=== PATIENT | female | born 1965 | race Caucasian/White ===

== ENCOUNTER 2018-11-16 11:23 | Emergency (ER) | payer OTHER, SELFPAY ==
[2018-11-16 11:24] VITALS: BP 156/101; PULSE 66; RESP 16; TEMP 36.7; O2SAT 96; BMI 30.2
--- NOTE | 2018-11-16 11:36 | VDLE_ITS ---
Reason For Study: pAIN Procedure LEFT Exam performed portable in ED. GSV is normal. A preliminary report was called and/or faxed CFV is compressible, spontaneous, phasic, to Robby. competent, and demonstrates normal augmentation. FV is compressible, spontaneous, phasic, competent and demonstrates normal augmentation. POP V is compressible, spontaneous, phasic, competent and demonstrates normal augmentation. T/P Trunk is compressible. PTV is compressible. LT PerV is compressible. Interpretation Summary 1. Left leg with no DVT, no SVt, and no reflux noted. Ordering Physician: Rogelio Bustamante Referring Physician: Augustus Savage Chi Performed By: Lexi Raman RVT
--- NOTE | 2018-11-16 11:40 | ED.DCSUM_ITS ---
History of Present Illness Chief Complaint: Lower Extremity Injury Informant: Patient Occurred: Days - 1-2 Context: Gradual Onset Timing: Continuous Quality of Pain: Aching - and sore Location: left lower leg Current Severity: Moderate Maximum Severity: Moderate Worsened by: walking, palpation Relieved by: remaining still Associated Symptoms: Negative for: Parasthesia, Weakness, Loss of Funtion Narrative: Patient has had spontaneous onset of 2 red, painful, swollen areas on her left lower extremity. She states she felt malaise this morning prior to going to the doctor for this, but denies any fevers or other systemic symptoms, no chest pain or shortness of breath or feeling lightheaded. She has had no recent travel or immobilization, no history of DVT or PE. She does not have chronic lymphedema of her legs. She denies any foreign bodies on her feet, lacerations, splits in skin, splinters, etc. or any other obvious nidus for infection. No recent injury/trauma. She went to see if there is a walk-in appointment available at her doctor but there was not, and the nurse recommended that she come to the emergency department. Recent Illness/Hospitalization: No - Past Medical History (1) Borderline diabetes mellitus Status: Chronic Past Medical History - Allergies and Home Meds Allergies/Adverse Reactions: Allergies Penicillins Allergy (Verified 11/16/18 11:24) Rash Primary Care Physician: Sukumar Vanegas,Out of [Primary Care Provider] - Smoking Status: Never smoker Review of Systems General: Reports: Malaise. Denies: Chills, Fever Eyes: Denies: Visual changes - bilaterally, Diplopia ENT: Denies: Rhinorrhea, Sore throat Cardiovascular: Denies: Chest pain, Palpitations Respiratory: Denies: Dyspnea, Cough, Dyspnea on exertion Gastrointestinal: Denies: Abdominal pain, Nausea, Vomiting, Diarrhea, Melena, Hematochezia Genitourinary: Denies: Dysuria, Hematuria, Frequency Musculoskeletal: Reports: Swelling, Extremity Pain. Denies: Back pain Skin: Reports: Rash. Denies: Wounds Neurological: Denies: Headache, Weakness, Numbness Physical Exam Vital Signs/Narrative: Vital Signs Temp Pulse Resp BP Pulse Ox 11/16/18 11:24 98.0 F 66 16 156/101 H 96 Inital Vital Signs reviewed: Yes - Extremity Exam Right Tib fib: - - Patient has 2 separate areas of blanching, tender erythema, edges are not well-circumscribed, one is at the medial ankle and there is excellent range of motion of the ankle, there is tender to deep palpation posterior to the malleolus; the other is along the distal third of the sandoval, proximal to the ankle joint, it is swollen but not fluctuant, there is no palpable abscess. There is no lymphangitis, calf tenderness, palpable cords in the leg or thigh, and no inguinal lymphadenopathy. There is no obvious wound or nidus for infection. There are no splits between her toes and the plantar aspect of the foot is benign and normal-appearing.. Negative for: Limited ROM General: Well nourished, Well developed, - - Well-appearing, NAD, pleasant, conversive Head: Normocephalic, Atraumatic Eyes: Perrl, EOMI ENT: No Trauma, Moist Mucous Membranes Neck: Nontender, Full ROM Skin: No Trauma, Rash - Blanching erythema without any other focal vesicular, petechial, or bullous lesions. See above. Neurological: Alert, Oriented x3, Cranial nerves II-XII grossly intact, Normal Strength, Normal Sensation, Normal Gait Psychological: Normal affect, Normal Mood Diagnostic/Tx/Re-eval - Medical Decision Making Ultrasound of the left lower extremity was obtained in the emergency department, the preliminary from the tech who performed the test is that it is normal with no evidence of abscess, deep venous, or superficial venous thrombosis. Given this, and the appearance and tenderness of these areas, will treat as cellulitis until proven otherwise. There is no other likely diagnosis at this time. Patient reported there does not appear to be any joint involvement, she has full range of motion without difficulty. On reexamination of her leg 45 minutes after her initial evaluation, the redness is unchanged on my exam. I jana a line around it with a permanent marker for the patient to follow, given reasons to return. Initially treated with IM Ancef 1 g, her reaction to penicillin is not anaphylaxis, we will closely watch her prior to discharge. ED Disposition - Plan for ED Patient: Disposition: Home or Assisted Living Diagnosis: Cellulitis of left lower leg Instructions: Cellulitis Prescriptions: Cephalexin [Keflex] 500 mg PO 4X/DAY #40 cap Transmission Status: Pending to [facility] Referrals: [facility] Doctor,Out of [Primary Care Provider] - 3-5 Days if not improving
[2018-11-16 14:41] VITALS: BP 157/93; PULSE 71; RESP 15; O2SAT 98
== END 2018-11-16 15:17 | disposition home or self-care (01) ==
LOC: ED 12:25
PROVIDERS: Emergency Provider Emergency Medicine; Family Provider Nurse Practitioner Family; PCP Nurse Practitioner Family
DX: L03.116 Cellulitis of left lower limb (principal)
CPT/HCPCS: 93971; 96365; 99283

== ENCOUNTER → 2019-09-20 10:55 | Outpatient (REF) | payer OTHER, SELFPAY | LOC: MTDU 10:55 | PROVIDERS: PCP Nurse Practitioner Family; Referring Provider Family Medicine; Visit Provider Family Medicine | DX: U07.1 COVID-19 (principal) | CPT/HCPCS: 87635; G2023; U0004 ==

== ENCOUNTER 2019-09-22 15:12 | Emergency (ER) | payer OTHER, SELFPAY ==
[2019-09-22 15:14] VITALS: BP 167/89; PULSE 92; RESP 22; TEMP 36.4; O2SAT 97; BMI 29.2
--- NOTE | 2019-09-22 15:23 | EKG12_ITS ---
Test Reason : Blood Pressure : / mmHG Vent. Rate : 080 BPM Atrial Rate : 080 BPM P-R Int : 174 ms QRS Dur : 102 ms QT Int : 392 ms P-R-T Axes : 056 -37 079 degrees QTc Int : 452 ms Normal sinus rhythm Left axis deviation Left ventricular hypertrophy with repolarization abnormality Abnormal ECG Confirmed by ILA AGUDELO, SCOTT ([id number]), online editor PEACE CANO ([id number]) on 09/27/2019 2:06:30 PM Referred By: ADOLPH Confirmed By:SCOTT THORPE MD
--- NOTE | 2019-09-22 15:24 | ED.VIS.GEN ---
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 Patient states that little over a week ago she began to experience fever fatigue headache sore throat cough and shortness of breath. There is been a outbreak of COVID-19 in her [facility] community. She was swabbed for COVID on Thursday. Last Thursday she was started on a antibiotic and prednisone which she states she has finished. She most of her symptoms have resolved but she feels extremely fatigued. Her is a transportation analyst and notes that her oxygen saturations have been good but her fatigue has been limiting her eating. She denies any urinary symptoms. She continues to have some shortness of breath. Past Medical History - Allergies and Home Meds Allergies/Adverse Reactions: Allergies Penicillins Allergy (Verified 09/22/19 15:22) Rash Primary Care Physician: Diego Ayala, [employer] [place] [employer] [Primary Care Provider] - As Needed Smoking Status: Never smoker Review of Systems General: Reports: Fever, Malaise. Denies: Chills, Sweats Eyes: Denies: Visual changes - bilaterally, Diplopia ENT: Reports: Sore throat, - - Sinus pressure and pain. Denies: Rhinorrhea Cardiovascular: Reports: Chest pain. Denies: Palpitations Respiratory: Reports: Dyspnea, Cough, Dyspnea on exertion Gastrointestinal: Denies: Abdominal pain, Nausea, Vomiting, Diarrhea, Melena, Hematochezia Genitourinary: Denies: Dysuria, Hematuria, Frequency Musculoskeletal: Reports: Myalgias. Denies: Back pain, Extremity Pain Skin: Denies: Rash, Wounds Neurological: Reports: Headache. Denies: Weakness, Numbness Physical Exam Vital Signs/Narrative: Vital Signs Temp Pulse Resp Pulse Ox 09/22/19 15:14 97.5 F L 92 22 H 97 Inital Vital Signs reviewed: Yes General: Well nourished, Well developed, No Acute Distress Head: Normocephalic, Atraumatic Eyes: Perrl, EOMI ENT: Moist mucous membranes, No rhinorrhea Neck: Supple, Nontender Cardiovascular: Regular rate, Regular rhythm, No murmurs Respiratory: No distress, CTA bilaterally, Chest nontender Abdomen: Soft, Nontender, Nondistended, Normal bowel sounds Back: Nontender, Normal Inspection Extremities: Nontender, No edema Skin: Normal color, No rash Neurological: Alert, Oriented x3, Cranial nerves II-XII grossly intact, Normal Strength, Normal Sensation Psychological: Normal affect, Normal Mood Diagnostic/Tx/Re-eval - Medical Decision Making Basic labs showed a normal white blood cell count. Troponin negative. CMP normal for potassium of 3.1.. Her EKG is a normal sinus rhythm at a rate of 80. She has maintained a pulse ox in the mid 90s. Her chest x-ray shows some small infiltrative changes but she just finished antibiotics. At this point I believe the patient can be discharged home. I will write for some supplemental potassium. Return if worsening or concerns ED Disposition - Plan for ED Patient: Disposition: Home or Assisted Living Diagnosis: COVID-19 virus infection, Hypokalemia, Fatigue Prescriptions: Potassium Chloride [K-Dur] 20 meq PO DAILY #4 tab Prescription Printed Potassium Chloride [K-Dur] 40 meq PO DAILY #8 tab Transmission Status: Pending to [facility] Referrals: Diego Ayala, [employer] [place] [employer] [Primary Care Provider] - As Needed Additional Instructions: Continue to hydrate and rest. All signs are indicating that you are getting better from this virus.
[2019-09-22] MEDS: 0.9% Normal Saline 1,000 ML 1000 ML IV ×2 (15:54→16:51)
[2019-09-22 15:58] LABS: Absolute Lymphocyte Count 1.98 X10^3/uL (0.83-4.51); Absolute Neutrophil Count 3.7 X10^3/uL (2.0-7.7); Basophil# 0.03 X10^3/uL; Basophil% 0.5 % (0-1); Eosinophils% 1.5 % (0-5); Hematocrit 46.7 % (37-47); Hemoglobin 15.6 g/dL (12.0-15.0); Lymphocyte # 1.98 X10^3/ul (4.0); Lymphocyte % 29.8 % (19-41); Mean Corp Hgb Conc 33.4 g/dL (32-36); Mean Corpuscular Hgb 29.4 pg (27.0-32.0); Mean Corpuscular Volume 87.9 fL (81-99); Monocyte# 0.81 X10^3/uL; Monocyte% 12.2 % (0-10); NRBC Flagged by Analyzer 0 % (0-5); Neutrophil # 3.68 X10^3/uL (2.7-7.7); Neutrophil % 55.4 % (47-70); POSITIVE MORPHOLOGY YES; Platelet Count 336 K/mm3 (150-450); RBC Distribution Width CV 12.3 % (11.6-14.6); RBC Distribution Width SD 39.7 fl (35.1-43.9); Red Blood Count 5.31 M/mm3 (4.2-5.4); White Blood Count 6.6 K/mm3 (4.4-11.0)
[2019-09-22 16:00] LABS: Differential Indicated SCAN CRITERIA MET
--- NOTE | 2019-09-22 16:00 | RAD_ITS ---
STUDY: X-RAY CHEST REASON FOR EXAM: Female, 54 years old. HAD CHILLS ABOUT 12 DAYS AGO, HEADACHE, SORE THROAT, NAUSEA AND DIARRHEA, COUGH, SOB, WEAK TECHNIQUE: Portable chest COMPARISON: None. FINDINGS: There are mild bilateral lower lobe pulmonary opacities. There is mild left upper lobe pulmonary opacity. There is no demonstrated pleural abnormality. Heart is upper limits of normal in size.. Normal mediastinum and alvaro. Normal visualized pulmonary arteries. Normal visualized aortic arch and descending thoracic aorta. Normal visualized thoracic spine. Normal visualized ribs, clavicles, and shoulders. There is no demonstrated abnormality of the visualized soft tissue structures of the upper abdomen. RAD/Chest 1 View (Portable) IMPRESSION: Mild bilateral lower lobe pulmonary opacities mild left upper lobe opacity possible pneumonia, atypical viral pneumonia Electronically Signed: Jesse Benz, at 16:25 EDT Tel , Service support ,
[2019-09-22 16:18] LABS: ALB/GLOB Ratio 0.8 RATIO (0.9-2.4); AST(SGOT) 23 U/L (15-37); Alanine Aminotransfer ALT/SGPT 39 U/L (13-56); Albumin, Serum 3.5 g/dL (3.2-5.0); Alkaline Phosphatase 117 U/L (45-117); Anion Gap 6 (5-15); BUN 12 mg/dL (7-18); BUN/Creat Ratio 17.7 RATIO (10-20); Calcium,Total 8.8 mg/dL (8.5-10.1); Chloride 107 mmol/L (98-107); Creatinine, Serum 0.68 mg/dL (0.55-1.02); EST Glomerular Filtration Rate 95 mL/min (>60); Est Glom Filt Rate - Afr Amer 115 mL/min (>60); Estimated Creatinine Clearance 73.06 ml/min; Globulin 4.2 g/dL (2.2-4.2); Glucose 105 mg/dL (74-106); Lipase 181 U/L (73-393); Potassium 3.1 mmol/L (3.5-5.1); Protein, Total 7.7 g/dL (6.4-8.2); Sodium Level 141 mmol/L (136-145)
[2019-09-22 16:21] LABS: Prothrombin Time (Protime)PT. 13.1 SECONDS (11.7-14.9)
[2019-09-22 16:22] LABS: Partial Thromboplast Time 29.9 Seconds (24.1-36.2)
[2019-09-22 16:36] LABS: Anisocytosis RARE; Atypical Lymphocyte 1+ %; Platelet Estimate ADEQUATE (ADEQ); Red Cell Morphology N CHROM NORMAL (NORM C&C)
[2019-09-22 17:21] VITALS: BP 184/98; PULSE 81; RESP 18; TEMP 36.4; O2SAT 96
[2019-09-22 17:55] LABS: Bacteria 0 SEEN /hpf (None Seen); Mucous, Urine 0 SEEN /hpf (<or=2+); Red Blood Cells-Urine 0 SEEN /hpf (0-5); White Blood Cells 0 SEEN /hpf (0-5)
[2019-09-22 17:56] LABS: Color, Urine Yellow (Yellow); Glucose, Dipstick Normal (Normal); Ketone-Dipstick Negative (Negative); Leukocyte Esterase-Dipstick Negative /ul (Negative); Nitrite-Dipstick Negative (Negative); Occult Blood-Urine Negative /ul (Negative); Protein-Dipstick Negative (Negative); Specific Gravity, Urine 1.005 (1.002-1.030); Urine Bilirubin Dipstick Negative (Negative); Urine Clarity Clear (Clear); Urine Urobilinogen Normal (Normal)
[2019-09-22 18:17] LABS: Squamous Epithelial Cells - UA 0-5 SEEN /hpf (5-10)
[2019-09-22 18:53] VITALS: BP 145/78; PULSE 84; RESP 19; O2SAT 97
[2019-09-23 12:18] LABS: Pathologist Review Reviewed
== END 2019-09-22 18:54 | disposition home or self-care (01) ==
PROVIDERS: Emergency Provider Emergency Medicine; PCP Nurse Practitioner Family
DX: U07.1 COVID-19 (principal); E87.6 Hypokalemia
CPT/HCPCS: 71045; 80053; 81001; 83690; 84484; 85025; 85610; 85730; 93005; 96360; 99285; J7030; A4216

== ENCOUNTER 2024-06-20 13:28 | Inpatient (IN) | payer OTHER, SELFPAY ==
[2024-06-20] VITALS (10 sets, daily range): BP systolic 106–135; BP diastolic 61–93; PULSE 69–85; RESP 16–27; TEMP 36.6–37.1; O2SAT 91–100; BMI 34.0
[2024-06-20 14:03] LABS: Absolute Lymphocyte Count 0.77 X10^3/uL (0.83-4.51); Absolute Neutrophil Count 6.6 X10^3/uL (2.0-7.7); Basophil# 0.03 X10^3/uL; Basophil% 0.4 % (0-1); Hematocrit 45.3 % (37-47); Hemoglobin 15.3 g/dL (12.0-15.0); Lymphocyte # 0.77 X10^3/ul (0.83-4.51); Lymphocyte % 9.4 % (19-41); Mean Corp Hgb Conc 33.8 g/dL (32-36); Mean Corpuscular Hgb 29.9 pg (27.0-32.0); Mean Corpuscular Volume 88.6 fL (81-99); Monocyte# 0.78 X10^3/uL; Monocyte% 9.5 % (0-10); NRBC Flagged by Analyzer 0 % (0-5); Neutrophil # 6.56 X10^3/uL (2.7-7.7); Neutrophil % 80.3 % (47-70); Platelet Count 286 K/mm3 (150-450); RBC Distribution Width CV 13.3 % (11.6-14.6); RBC Distribution Width SD 43.6 fl (35.1-43.9); Red Blood Count 5.11 M/mm3 (4.2-5.4); White Blood Count 8.2 K/mm3 (4.4-11.0)
[2024-06-20] MEDS: Aspirin 81 MG TAB.CHEW 324 MG PO (14:06)
--- NOTE | 2024-06-20 14:25 | RAD_ITS ---
PROCEDURE: CHEST PA AND LATERAL REASON FOR EXAM: Shortness of breath TECHNIQUE: Frontal and lateral views of the chest. COMPARISON: 09/22/2019 FINDINGS: Left chest pacemaker Heart size is moderately enlarged. The mediastinal contour is unremarkable. Pulmonary vasculature is congested. Left basilar opacity. The bones are unremarkable. RAD/Chest PA and Lateral IMPRESSION: 1. Cardiomegaly with pulmonary vascular edema. 2. Left basilar opacity which may represent atelectasis, airspace disease, and /or pleural fluid. Reading Location: [facility]
[2024-06-20 14:29] LABS: Anion Gap 10 (5-15); BUN 8 mg/dL (7-18); Calcium,Total 9.1 mg/dL (8.5-10.1); Chloride 100 mmol/L (98-107); Creatinine, Serum 0.73 mg/dL (0.55-1.02); EST Glomerular Filtration Rate 87 mL/min (>60); Est Glom Filt Rate - Afr Amer 105 mL/min (>60); Estimated Creatinine Clearance 78.34 ml/min; Glucose 112 mg/dL (74-106); Potassium 3.5 mmol/L (3.5-5.1); Sodium Level 132 mmol/L (136-145); Troponin-I HS 16 pg/mL (3.0-54.0)
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
[2024-06-20 15:07] LABS: Carboxyhemoglobin Frac (CO) 1.4 % (0.0-1.5)
[2024-06-20 15:29] LABS: Carboxyhemoglobin Order 1.4
--- NOTE | 2024-06-20 16:18 | NURSING ---
upon going in to pts room pt was 89 on RA, walked pt on pulse ox pt dropped to 87 on RA with ambulation. pt back in bed and 2L placed.
--- NOTE | 2024-06-20 16:44 | HP.PCM.HOS_ITS ---
HPI - General General Date of Admission: 06/20/24 Date of Service: 06/20/24 HPI Narrative LISA MOSLEY, is a 59-year-old female with history of HOCM and AICD as well as anxiety and hypertension presented to [facility] ED 06/20/2024 with shortness of breath that started today and flulike symptoms since Thursday including nonproductive cough, nasal congestion with fatigue and chills and subjective fevers. She saw PCP today and was encouraged to come to the hospital for evaluation. Did have recent influenza A sick contact. In the ED patient was placed on nonrebreather as there was question of carbon monoxide exposure but VBG carboxyhemoglobin only 1.4 so she is taken off of the rebreather. She was found to be influenza A positive, patient is ambulated she dropped down to 87% on room air so hospitalist contacted for admission. Patient evaluated bedside. Patient reports headache, nonproductive cough, chills, fever yesterday, fatigue, sore throat and today shortness of breath. Feels a little bit nauseous but no diarrhea or abdominal pain. Feeling about the same as when she arrived to the ED which is to say generally feeling unwell [facility] Medical History HOCM (hypertrophic obstructive cardiomyopathy) Presence of combination internal cardiac defibrillator (ICD) and pacemaker Chondrodermatitis nodularis helicis of left ear Mitral valve prolapse A-fib Generalized anxiety disorder Home Medications ?Medication ?Instructions ?Recorded ?Last Taken ?Type venlafaxine 37.5 mg tablet 75 mg PO DAILY 06/09/15 Unk nown History ramipril 5 mg capsule 5 mg PO DAILY 06/11/22 Unkno wn History Allergy/AdvReac Type Severity Reaction Status Date / Time Penicillins Allergy Rash Verified 06/11/22 14:49 Family History Father Diabetes Hypertension Heart disease CVA (cerebral vascular accident) Social History Smoking Status: Never smoker alcohol intake: never substance use type: does not use caffeine: Yes Type: coffee and tea ROS ROS Narrative General: Has had fever and chills HENT: Headache and sore throat EYES: Denies changes in vision Resp: Nonproductive cough and shortness of breath Cardiac: Denies chest pain GI: Denies abdominal pain, denies changes in bowel, limited nausea : Denies changes in urination Extremity: Denies swelling MSK: Generalized weakness and aches Neuro: Denies any numbness/tingling Heme: Denies any bleeding or bruising Skin: Denies rashes Psychiatric: No complaints voiced Vital Signs Vital Signs Vital Signs: 06/20/24 13:29 06/20/24 13:36 06/20/24 13:53 Temperature 98.4 F Temperature Source Axillary Pulse Rate 79 Respiratory Rate 27 H Respiratory Effort Short of Breath Blood Pressure 135/93 H Blood Pressure Mean 107 Pulse Ox 100 Oxygen Delivery Method Non-Rebreather Non-Rebreather Non-Rebreather Oxygen Flow Rate (L/min) 15 15 06/20/24 14:29 06/20/24 15:00 06/20/24 16:00 Temperature 97.9 F Temperature Source Temporal Pulse Rate 71 85 71 Respiratory Rate 18 20 H 19 H Respiratory Effort Blood Pressure 133/61 H 129/81 H 132/88 H Blood Pressure Mean 85 97 102 Pulse Ox 99 100 98 Oxygen Delivery Method Non-Rebreather @ 15L/min Non-Rebreather Room Air Oxygen Flow Rate (L/min) 15 Weight Weight: 81.6 kg Body Mass Index (BMI) 34.0 Physical Exam Narrative General: Alert, oriented HEENT: Atraumatic, normocephalic Eyes: Anicteric, normal conjunctiva, extraocular movements grossly intact Neck: Supple Respiratory: No significant rhonchi or wheezes appreciated, does have increased respiratory effort Cardiovascular: Regular rate and rhythm GI: Soft, nontender, nondistended Extremities: No edema Musculoskeletal: Moving all extremities Neuro: No overt focal neurological deficits Skin: No rashes appreciated Psych: Cooperative Results Lab / Micro Data 06/20/24 13:53 06/20/24 13:53 Labs: Laboratory Results - last 24 hr 06/20/24 13:53: WBC 8.2, RBC 5.11, Hgb 15.3 H, Hct 45.3, MCV 88.6, MCH 29.9, MCHC 33.8, RDW Std Deviation 43.6, RDW Coeff of Ousmane 13.3, Plt Count 286, MPV 11.0, Immature Gran % (Auto) 0.400, Neut % (Auto) 80.3 H, Lymph % (Auto) 9.4 L, [place] % (Auto) 9.5, Eos % (Auto) 0.0, Baso % (Auto) 0.4, Absolute Neuts (auto) 6.6, Absolute Lymphs (auto) 0.77 L, Nucleated RBC % 0, Sodium 132 L, Potassium 3.5, Chloride 100, Carbon Dioxide 23.0, Anion Gap 10, BUN 8, Creatinine 0.73, Estim Creat Clear Calc 78.34, Est GFR (MDRD) Af Amer 105, Est GFR (MDRD) Non-Af 87, BUN/Creatinine Ratio 11.0, Glucose 112 H, Calcium 9.1, Troponin I High Sens 16 Micro: Microbiology 06/20/24 14:00 Mucosa - Nose SARS-CoV-2, Influenza & RSV (PCR) - Final Influenzae A ABG Data ABG results: ABG 06/20/24 15:01 VBG Carboxyhemoglobin 1.4 Imaging Radiology Impression Chest X-Ray 06/20/24 14:25 IMPRESSION: 1. Cardiomegaly with pulmonary vascular edema. 2. Left basilar opacity which may represent atelectasis, airspace disease, and/or pleural fluid. Reading Location: [facility] Assessment & Plan Assessment/Plan (1) Hypoxemia: (2) Influenza A: PLAN: Plan # Hypoxia secondary to influenza infection -Patient found to be influenza A positive -Chest x-ray queried cardiomegaly with pulmonary vascular edema and left basilar opacity but reviewing film does not appear the patient has discrete infiltrate and patient with nonproductive cough and has an alternative reason for her hypoxia and shortness of breath (influenza A) so she was not started on antibiotics -Will place patient on DuoNebs -Incentive spirometry -Patient was borderline outside window for Tamiflu however this was started in the ED, feel it is reasonable to continue that at this time # History of HOCM and AICD placement -Last year patient had myomectomy and a month later had AICD placement -Noted -Can continue to follow-up outpatient #Depression/anxiety -Awaiting home med rec update, will continue home medications when this is available #DVT ppx: Lovenox subcu Brooke Martin MD Charges/Coding Visit Charges Inpatient E&M: 06963 Init Hosp L1
[2024-06-20] MEDS: Oseltamivir Phosphate 75 MG Capsule PO ×2 (16:48→23:07)
[2024-06-20] MEDS: 0.9% Normal Saline (1000mL) 1,000 ML 50 ML IV (19:04)
[2024-06-20] MEDS: 0.9% Saline Lock 10 ML Syringe IV (19:05)
[2024-06-20] MEDS: Ipratropium/Albuterol Sulfate 3 ML AMPUL.NEB INHALATION (20:25)
[2024-06-20] MEDS: Metoprolol(XL)Succ 100 MG Tablet PO (22:37)
[2024-06-20] MEDS: Acetaminophen 325 MG Tablet 650 MG PO (22:47)
[2024-06-20] MEDS: guaiFENesin 10 ML UDC (200MG/10ML) 20 ML PO (22:47)
[2024-06-20] MEDS: MELATONIN 3 MG TABLET PO (23:11)
[2024-06-20] MEDS: BENZOCAINE/MENTHOL 1 LOZENGE MUCOUS MEM (23:11)
[2024-06-21] VITALS (13 sets, daily range): BP systolic 95–111; BP diastolic 55–74; PULSE 52–78; RESP 16–20; TEMP 36.3–36.7; O2SAT 87–98
[2024-06-21] MEDS: Acetaminophen 325 MG Tablet 650 MG PO ×3 (06:27→22:36)
[2024-06-21] MEDS: guaiFENesin 10 ML UDC (200MG/10ML) 20 ML PO ×3 (06:27→22:37)
[2024-06-21 06:40] LABS: Absolute Lymphocyte Count 1.75 X10^3/uL (0.83-4.51); Absolute Neutrophil Count 3.6 X10^3/uL (2.0-7.7); Basophil# 0.03 X10^3/uL; Basophil% 0.5 % (0-1); Eosinophil# 0.16 X10^3/uL; Eosinophils% 2.5 % (0-5); Hematocrit 44.8 % (37-47); Hemoglobin 14.6 g/dL (12.0-15.0); Lymphocyte # 1.75 X10^3/ul (0.83-4.51); Lymphocyte % 27.3 % (19-41); Mean Corp Hgb Conc 32.6 g/dL (32-36); Mean Corpuscular Hgb 29.6 pg (27.0-32.0); Mean Corpuscular Volume 90.7 fL (81-99); Mean Platelet Vol. 10.7 fl (6.2-12.0); Monocyte# 0.85 X10^3/uL; Monocyte% 13.3 % (0-10); NRBC Flagged by Analyzer 0 % (0-5); Neutrophil % 56.1 % (47-70); Platelet Count 245 K/mm3 (150-450); RBC Distribution Width CV 13.4 % (11.6-14.6); RBC Distribution Width SD 45.1 fl (35.1-43.9); Red Blood Count 4.94 M/mm3 (4.2-5.4); White Blood Count 6.4 K/mm3 (4.4-11.0)
[2024-06-21 08:38] LABS: Anion Gap 7 (5-15); BUN 11 mg/dL (7-18); BUN/Creat Ratio 15.4 RATIO (10-20); Chloride 104 mmol/L (98-107); Creatinine, Serum 0.72 mg/dL (0.55-1.02); EST Glomerular Filtration Rate 88 mL/min (>60); Est Glom Filt Rate - Afr Amer 107 mL/min (>60); Estimated Creatinine Clearance 79.43 ml/min; Glucose 94 mg/dL (74-106); Potassium 3.1 mmol/L (3.5-5.1); Sodium Level 137 mmol/L (136-145)
[2024-06-21] MEDS: Atorvastatin Calcium 10 MG Tablet PO (08:39)
[2024-06-21] MEDS: Enoxaparin 40 MG/0.4 ML Syringe SC (08:39)
[2024-06-21] MEDS: Venlafaxine XR 150 MG Capsule PO (08:39)
[2024-06-21] MEDS: Oseltamivir Phosphate 75 MG Capsule PO ×2 (08:40→22:58)
--- NOTE | 2024-06-21 08:49 | NURSING ---
This RN is aware of Vital Signs taken by Randi Student Nurse from the [facility].
--- NOTE | 2024-06-21 09:18 | PCM.PN.HOSP ---
Subjective Subjective Doing well, no issues overnight Objective Data Objective Data Vital Signs: Vital Signs Temp Pulse Resp BP Pulse Ox O2 Del Method O2 Flow Rate 98.1 F 74 16 98/55 L 97 Nasal Cannula 1 06/21/24 08:36 06/21/24 08:43 06/21/24 08:36 06/21/24 08:43 06/21/24 08:36 06/21/24 08:36 06/21/24 08:36 Oxygen Flow Rate (L/min) 1 Oxygen Delivery Method Nasal Cannula Weight: 179 lb 14.355 oz Body Mass Index (BMI) 34.0 Intake & Output: Intake and Output for Last 24 Hours 06/20/24 06/21/24 06/22/24 03:59 03:59 03:59 Intake Total 0 / 0 Balance 0 / 0 Lab / Micro Data 06/21/24 05:35 06/21/24 05:35 Labs: Laboratory Results - last 24 hr 06/20/24 13:53: WBC 8.2, RBC 5.11, Hgb 15.3 H, Hct 45.3, MCV 88.6, MCH 29.9, MCHC 33.8, RDW Std Deviation 43.6, RDW Coeff of Ousmane 13.3, Plt Count 286, MPV 11.0, Immature Gran % (Auto) 0.400, Neut % (Auto) 80.3 H, Lymph % (Auto) 9.4 L, [place] % (Auto) 9.5, Eos % (Auto) 0.0, Baso % (Auto) 0.4, Absolute Neuts (auto) 6.6, Absolute Lymphs (auto) 0.77 L, Nucleated RBC % 0, Sodium 132 L, Potassium 3.5, Chloride 100, Carbon Dioxide 23.0, Anion Gap 10, BUN 8, Creatinine 0.73, Estim Creat Clear Calc 78.34, Est GFR (MDRD) Af Amer 105, Est GFR (MDRD) Non-Af 87, BUN/Creatinine Ratio 11.0, Glucose 112 H, Calcium 9.1, Troponin I High Sens 16 06/21/24 05:35: WBC 6.4, RBC 4.94, Hgb 14.6, Hct 44.8, MCV 90.7, MCH 29.6, MCHC 32.6, RDW Std Deviation 45.1 H, RDW Coeff of Ousmane 13.4, Plt Count 245, MPV 10.7, Immature Gran % (Auto) 0.300, Neut % (Auto) 56.1, Lymph % (Auto) 27.3, [place] % (Auto) 13.3 H, Eos % (Auto) 2.5, Baso % (Auto) 0.5, Absolute Neuts (auto) 3.6, Absolute Lymphs (auto) 1.75, Nucleated RBC % 0, Sodium 137, Potassium 3.1 L, Chloride 104, Carbon Dioxide 25.0, Anion Gap 7, BUN 11, Creatinine 0.72, Estim Creat Clear Calc 79.43, Est GFR (MDRD) Af Amer 107, Est GFR (MDRD) Non-Af 88, BUN/Creatinine Ratio 15.4, Glucose 94, Calcium 9.0 Micro: Microbiology 06/20/24 14:00 Mucosa - Nose SARS-CoV-2, Influenza & RSV (PCR) - Final Influenzae A ABG Data ABG results: ABG 06/20/24 15:01 VBG Carboxyhemoglobin 1.4 Radiography Diagnostic Testing: Radiology Impression Chest X-Ray 06/20/24 14:25 IMPRESSION: 1. Cardiomegaly with pulmonary vascular edema. 2. Left basilar opacity which may represent atelectasis, airspace disease, and/or pleural fluid. Reading Location: [facility] Physical Exam Narrative General: Alert, Oriented x3, Cooperative, No apparent distress HEENT: Atraumatic, PERRLA, EOMI, Normocephalic Oral: Moist Mucosa Neck: Supple, No JVD Lungs: Diminished, Normal air movement, No rhonchi, No wheeze, No rales Cardiovascular: Regular rate, Regular Rhythm, Normal S1, Normal S2, No murmurs Abdomen: Soft, Non Tender, Non-Distended, No Hepato-splenomegaly Extremities: No edema, Capillary Refill Less than 3 Seconds Skin: No rashes, No breakdown Musculoskeletal: No Tenderness to Palpation of Joints or Extremities Neurological: No focal neurological deficits, Motor Exam 5/5 strength throughout, Sensory exam intact to light touch and pain Psych/Mental Status: Normal Affect, Appropriate Assessment & Plan Assessment/Plan (1) Hypoxemia: (2) Influenza A: PLAN: Plan 1. Hypoxia secondary to influenza infection -Patient found to be influenza A positive -Chest x-ray queried cardiomegaly with pulmonary vascular edema and left basilar opacity but reviewing film does not appear the patient has discrete infiltrate and patient with nonproductive cough and has an alternative reason for her hypoxia and shortness of breath (influenza A) so she was not started on antibiotics -Will place patient on DuoNebs -Incentive spirometry -Patient was borderline outside window for Tamiflu however this was started in the ED, feel it is reasonable to continue that at this time ? Continue with her home Lasix 2. History of HOCM and AICD placement -Last year patient had myomectomy and a month later had AICD placement -Noted -Can continue to follow-up outpatient 3. Depression/anxiety ? Stable -Resume her home medications DVT: Lovenox Charges/Coding Visit Charges Inpatient E&M: 40461 Subs Hosp L2
[2024-06-21] MEDS: Ipratropium/Albuterol Sulfate 3 ML AMPUL.NEB INHALATION ×2 (12:46→19:27)
--- NOTE | 2024-06-21 15:49 | CASEMGMT ---
NANCY FU Assessment Face to Face with patient for initial transition planning/care coordination assessment. NANCY FU introduced self and role at [facility], pt voices understanding. Pt is A&Ox4 and is resting comfortably in bed and is calm. Pt at bedside. Care providers, pharmacy, and demographics verified. Admitting dx: Hypoxia, Influenza PCP: Klaudia Harris Specialists: Gricelda (Cardio - [facility]) Preferred Pharmacy: [facility] Insurance: [employer] Prescription Benefit: Yes LNOK: Junior (H), Salud Denise (Daughter) Living Arrangements: Pt lives with her in a single story home with a flat entrance ADLs/IADLs: Ind Transportation: E-Bike. Hires Drivers. Denies concerns DME: Denies all DME uses. Pt is currently requiring additional oxygen and may qualify for home oxygen use. A verbal list of local in-network DME companies were provided to the pt at this time. Pt prefers [facility] HHC/SNF: Denies Hx or needs Pt?s goal: Home Plan: Home no needs e/f potential oxygen. Pt states that she feels safe returning home with the help of her once she is medically ready and denies the need for HH, OP Tx, or CCN. Pt and pt deny further questions at this time. Report given to 3 NANCY FU. Alley Chacon RN, CM
[2024-06-21] MEDS: MELATONIN 3 MG TABLET PO (22:36)
[2024-06-21] MEDS: Metoprolol(XL)Succ 100 MG Tablet PO (22:37)
[2024-06-21] MEDS: 0.9% Saline Lock 10 ML Syringe IV (22:39)
[2024-06-22] VITALS (10 sets, daily range): BP systolic 98–122; BP diastolic 61–68; PULSE 54–99; RESP 16–20; TEMP 36.3–36.6; O2SAT 85–98
[2024-06-22 06:06] LABS: Absolute Lymphocyte Count 1.53 X10^3/uL (0.83-4.51); Absolute Neutrophil Count 1.4 X10^3/uL (2.0-7.7); Basophil# 0.02 X10^3/uL; Basophil% 0.6 % (0-1); Eosinophil# 0.04 X10^3/uL; Eosinophils% 1.1 % (0-5); Hematocrit 41.7 % (37-47); Lymphocyte # 1.53 X10^3/ul (0.83-4.51); Lymphocyte % 42.7 % (19-41); Mean Corp Hgb Conc 33.6 g/dL (32-36); Mean Corpuscular Hgb 29.9 pg (27.0-32.0); Mean Corpuscular Volume 89.1 fL (81-99); Mean Platelet Vol. 10.7 fl (6.2-12.0); Monocyte# 0.58 X10^3/uL; Monocyte% 16.2 % (0-10); NRBC Flagged by Analyzer 0 % (0-5); Neutrophil # 1.39 X10^3/uL (2.7-7.7); Neutrophil % 38.8 % (47-70); Platelet Count 249 K/mm3 (150-450); RBC Distribution Width CV 13.3 % (11.6-14.6); RBC Distribution Width SD 43.5 fl (35.1-43.9); Red Blood Count 4.68 M/mm3 (4.2-5.4); White Blood Count 3.6 K/mm3 (4.4-11.0)
[2024-06-22 06:19] LABS: Anion Gap 6 (5-15); BUN 9 mg/dL (7-18); BUN/Creat Ratio 15.2 RATIO (10-20); Calcium,Total 8.9 mg/dL (8.5-10.1); Chloride 108 mmol/L (98-107); Creatinine, Serum 0.59 mg/dL (0.55-1.02); EST Glomerular Filtration Rate 109 mL/min (>60); Est Glom Filt Rate - Afr Amer 132 mL/min (>60); Estimated Creatinine Clearance 96.93 ml/min; Glucose 101 mg/dL (74-106); Potassium 3.4 mmol/L (3.5-5.1); Sodium Level 140 mmol/L (136-145)
[2024-06-22] MEDS: Ipratropium/Albuterol Sulfate 3 ML AMPUL.NEB INHALATION ×3 (07:05→19:51)
[2024-06-22] MEDS: Potassium Chloride Oral Tablet 20 MEQ 40 MEQ PO (09:22)
[2024-06-22] MEDS: Oseltamivir Phosphate 75 MG Capsule PO ×2 (09:22→21:07)
[2024-06-22] MEDS: Furosemide 20 MG Tablet PO (09:22)
[2024-06-22] MEDS: Metoprolol(XL)Succ 100 MG Tablet PO ×2 (09:22→21:08)
[2024-06-22] MEDS: Atorvastatin Calcium 10 MG Tablet PO (09:22)
[2024-06-22] MEDS: Venlafaxine XR 150 MG Capsule PO (09:22)
[2024-06-22] MEDS: Enoxaparin 40 MG/0.4 ML Syringe SC (09:23)
--- NOTE | 2024-06-22 14:38 | PN_ITS ---
Subjective Subjective Patient seen and examined. She says she still feels short of breath with exertion. She denies any cough, chest pain, palpitations, dizziness, nausea, vomiting or any other symptoms. Review of systems is otherwise negative. She is on 2L of oxygen by nasal canula. Objective Data Objective Data Vital Signs: Vital Signs Temp Pulse Resp BP Pulse Ox O2 Del Method O2 Flow Rate 97.8 F 69 16 98/62 93 Room Air 2 06/22/24 13:45 06/22/24 13:45 06/22/24 13:45 06/22/24 13:45 06/22/24 13:45 06/22/24 13:53 06/22/24 07:05 FiO2 92 06/21/24 12:47 Oxygen Flow Rate (L/min) 2 Oxygen Delivery Method Room Air Weight: 179 lb 14.355 oz Body Mass Index (BMI) 34.0 Intake & Output: Intake and Output for Last 24 Hours 06/20/24 06/21/24 06/22/24 23:59 23:59 23:59 Intake Total 0 / 0 2450 / 2450 Balance 0 / 0 2450 / 2450 Lab / Micro Data 06/22/24 05:38 06/22/24 05:38 Labs: Laboratory Results - last 24 hr 06/22/24 05:38: WBC 3.6 L, RBC 4.68, Hgb 14.0, Hct 41.7, MCV 89.1, MCH 29.9, MCHC 33.6, RDW Std Deviation 43.5, RDW Coeff of Ousmane 13.3, Plt Count 249, MPV 10.7, Immature Gran % (Auto) 0.600, Neut % (Auto) 38.8 L, Lymph % (Auto) 42.7 H, [place] % (Auto) 16.2 H, Eos % (Auto) 1.1, Baso % (Auto) 0.6, Absolute Neuts (auto) 1.4 L, Absolute Lymphs (auto) 1.53, Nucleated RBC % 0, Sodium 140, Potassium 3.4 L, Chloride 108 H, Carbon Dioxide 26.0, Anion Gap 6, BUN 9, Creatinine 0.59, Estim Creat Clear Calc 96.93, Est GFR (MDRD) Af Amer 132, Est GFR (MDRD) Non-Af 109, BUN/Creatinine Ratio 15.2, Glucose 101, Calcium 8.9 Micro: Microbiology 06/20/24 14:00 Mucosa - Nose SARS-CoV-2, Influenza & RSV (PCR) - Final Influenzae A Physical Exam Const alert, oriented x3, no apparent distress and well nourished General Appearance: cooperative and well developed HEENT head/scalp atraumatic, moist oral mucous membranes, oropharynx normal and gingiva normal Eyes PERRL and EOMs intact bilaterally Neck no lymphadenopathy, supple and no JVD Lymph Lymphatic: no lymphadenopathy noted and no lymphedema noted Resp Resp Narrative: mildly diminished breath sounds bibasally, no wheezes or crackles. on 2L of oxygen by nasal canula Cardio regular rate, regular rhythm, S1 normal heart sound, S2 normal heart sound and no murmurs GI normal to inspection, nondistended, normoactive bowel sounds, soft to palpation, non-tender and non-distended Extremity normal capillary refill, no clubbing, cyanosis or edema and no calf tenderness General Extremity: no tenderness to palpation of joints or extremities Skin General Skin Exam: no breakdown Neuro CN's II-XII intact bilaterally, no focal motor deficits, no sensory deficits noted and deep tendon reflexes 2+ bilaterally Motor Exam: strength 5/5 throughout and general weakness Psych thought process normal and cooperative Appearance: appropriate Assessment & Plan Assessment/Plan (1) Influenzal pneumonia: (2) Hypoxemia: (3) Influenza A: PLAN: Plan #Hypoxia due to acute influenza infection * now on 2L of oxygen by nasal canula * feel short of breath with exertion * titrate oxygen to maintain sats >90% * Chest showed on admission showed cardiomegaly with pulmonary vascular edema and questionable left basilar opacity. * breathing treatment with bronchodilators. * on tamiflu * titrate oxygen to maintain sats >90% * on PO lasix * #History of hypertrophic obstructive cardiomyopathy * S/p surgery and AICD insertion. * Stable. * #Hypokalemia: K is 3.4. Will replace and trend. #DEpression: on venlafaxine #Hypertension: on metoprolol #Hyperlipidemia: on statin #DVT prophylaxis: lovenox Charges/Coding Visit Charges Inpatient E&M: 04510 Subs Hosp L2
[2024-06-22] MEDS: Acetaminophen 325 MG Tablet 650 MG PO (21:25)
[2024-06-22] MEDS: guaiFENesin 10 ML UDC (200MG/10ML) 20 ML PO (21:26)
[2024-06-22] MEDS: MELATONIN 3 MG TABLET PO (21:26)
[2024-06-23] VITALS (8 sets, daily range): BP systolic 114–134; BP diastolic 62–72; PULSE 53–73; RESP 16–18; TEMP 36.4–36.8; O2SAT 93–98
[2024-06-23 06:31] LABS: Absolute Lymphocyte Count 1.69 X10^3/uL (0.83-4.51); Absolute Neutrophil Count 3.4 X10^3/uL (2.0-7.7); Basophil# 0.02 X10^3/uL; Basophil% 0.3 % (0-1); Eosinophil# 0.05 X10^3/uL; Eosinophils% 0.9 % (0-5); Hematocrit 41.2 % (37-47); Hemoglobin 14.2 g/dL (12.0-15.0); Lymphocyte # 1.69 X10^3/ul (0.83-4.51); Lymphocyte % 29.4 % (19-41); Mean Corp Hgb Conc 34.5 g/dL (32-36); Mean Corpuscular Hgb 30.5 pg (27.0-32.0); Mean Corpuscular Volume 88.6 fL (81-99); Monocyte# 0.54 X10^3/uL; Monocyte% 9.4 % (0-10); NRBC Flagged by Analyzer 0 % (0-5); Neutrophil # 3.43 X10^3/uL (2.7-7.7); Neutrophil % 59.8 % (47-70); Platelet Count 259 K/mm3 (150-450); RBC Distribution Width CV 13.2 % (11.6-14.6); RBC Distribution Width SD 42.8 fl (35.1-43.9); Red Blood Count 4.65 M/mm3 (4.2-5.4); White Blood Count 5.7 K/mm3 (4.4-11.0)
[2024-06-23 06:49] LABS: Anion Gap 7 (5-15); BUN 8 mg/dL (7-18); BUN/Creat Ratio 14.2 RATIO (10-20); Calcium,Total 8.8 mg/dL (8.5-10.1); Chloride 108 mmol/L (98-107); Creatinine, Serum 0.56 mg/dL (0.55-1.02); EST Glomerular Filtration Rate 116 mL/min (>60); Est Glom Filt Rate - Afr Amer 140 mL/min (>60); Estimated Creatinine Clearance 102.12 ml/min; Glucose 97 mg/dL (74-106); Potassium 3.6 mmol/L (3.5-5.1); Sodium Level 141 mmol/L (136-145)
[2024-06-23] MEDS: Venlafaxine XR 150 MG Capsule PO (11:45)
[2024-06-23] MEDS: Furosemide 20 MG Tablet PO (11:45)
[2024-06-23] MEDS: Oseltamivir Phosphate 75 MG Capsule PO (11:46)
[2024-06-23] MEDS: Metoprolol(XL)Succ 100 MG Tablet PO (11:46)
[2024-06-23] MEDS: Atorvastatin Calcium 10 MG Tablet PO (11:46)
[2024-06-23] MEDS: Enoxaparin 40 MG/0.4 ML Syringe SC (11:46)
--- NOTE | 2024-06-23 12:46 | NURSING ---
This RN is aware of Vital Signs obtained today by Randi Dockery Can Cleaner from [facility].
--- NOTE | 2024-06-23 12:55 | DS.PCM_ITS ---
Providers Date of Admission: 06/20/24 Date of Discharge: 06/23/24 Primary Care Physician: Klaudia Harris, BICYCLE REPAIRMAN-C Reason For Visit: HYPOXIA 2/2 INFLUENZA Diagnosis Discharge Diagnosis (1) Influenzal pneumonia: Status: Acute Code(s): J11.00 - Influenza due to unidentified influenza virus with unspecified type of pneumonia (2) Hypoxemia: Status: Acute Code(s): R09.02 - Hypoxemia (3) Influenza A: Status: Acute Code(s): J10.1 - Influenza due to other identified influenza virus with other respiratory manifestations Plan #Hypoxia due to acute influenza infection * now on 2L of oxygen by nasal canula * feel short of breath with exertion * titrate oxygen to maintain sats >90% * Chest showed on admission showed cardiomegaly with pulmonary vascular edema and questionable left basilar opacity. * breathing treatment with bronchodilators. * on tamiflu * titrate oxygen to maintain sats >90% * on PO lasix * #History of hypertrophic obstructive cardiomyopathy * S/p surgery and AICD insertion. * Stable. * #Hypokalemia: K is 3.4. Will replace and trend. #DEpression: on venlafaxine #Hypertension: on metoprolol #Hyperlipidemia: on statin #DVT prophylaxis: lovenox Medications at Discharge Home Medications atorvastatin 10 mg tablet 10 mg PO DAILY 06/20/24 furosemide 20 mg tablet 20 mg PO DAILY 06/20/24 metoprolol succinate 50 mg tablet,extended release 24 hr 100 mg PO BID 06/20/24 multivitamin (Daily Multi-Vitamin tablet) 1 tab PO DAILY 06/20/24 venlafaxine 150 mg tablet,extended release 24 hr 150 mg PO DAILY 06/20/24 oseltamivir 75 mg capsule 75 mg PO BID #4 caps 06/23/24 Hospital Course Operations None Procedures None Summary of Care Provided Minutes Spent on Discharge: 45 Hospital Course: Patient is a 59-year-old female with a past medical history as outlined which includes hypertrophic cardiomyopathy s/p ICD in surgery as well as anxiety and hypertension was admitted through the ED on 06/20/2024 with complaint of shortness of breath which started on the day of admission. She had also had some flulike symptoms for several days prior to admission and had an associated nonproductive cough with nasal congestion, fatigue and chills as well as fevers. She went see her PCP and was encouraged to come into the hospital for evaluation. She had had a recent contact about influenza A. On admission there was concern about carbon monoxide exposure but this was ruled out via VBG results. Influenza A screen was positive. She became hypoxic with ambulation down to 87% so she was admitted to be managed for hypoxia due to acute influenza infection. She was placed on breathing treatments bronchodilators as well as Tamiflu. Patient shortness of breath gradually improved and she felt better. She was weaned off of oxygen and on 23 June 2024 she had a walking pulse ox which showed that she did not require any oxygen. She was discharged home on 06/23/2024. She is to follow-up with her primary care doctor within 1 to 2 weeks. She was discharged with a prescription for p.o. Tamiflu for 4 doses to complete a 5-day course. Patient seen and examined prior to discharge. She felt well and had no complaints. She had an uneventful night. Review of systems otherwise negative. Labs and vitals reviewed. Home medication reviewed and reconciled. Physical Exam Const alert, oriented x3, no apparent distress and well nourished General Appearance: cooperative, comfortable, well kempt and well developed Orientation / Consciousness: awake HEENT normocephalic, head/scalp atraumatic, hearing grossly normal bilaterally, moist oral mucous membranes, oropharynx normal and gingiva normal Mouth: oral and palatal mucosa normal Eyes PERRL, EOMs intact bilaterally and conjunctivae normal Neck no lymphadenopathy, supple and no JVD Lymph Lymphatic: no lymphadenopathy noted and no lymphedema noted Resp Resp Narrative: mildly diminished breath sounds bibasally, no wheezes or crackles. on room air. Cardio regular rate, regular rhythm, S1 normal heart sound, S2 normal heart sound and no murmurs GI normal to inspection, nondistended, normoactive bowel sounds, soft to palpation, non-tender and non-distended Extremity normal to inspection, full ROM, normal capillary refill, no clubbing, cyanosis or edema and no calf tenderness General Extremity: no tenderness to palpation of joints or extremities Skin no rashes or lesions noted General Skin Exam: no breakdown Neuro oriented x3, CN's II-XII intact bilaterally, moves all extremities, no focal motor deficits, no sensory deficits noted and deep tendon reflexes 2+ bilaterally Sensorium / Orientation: awake Motor Exam: strength 5/5 throughout and general weakness Psych thought process normal and cooperative Appearance: appropriate Weight / BMI Weight Weight: 179 lb 14.355 oz Body Mass Index (BMI) 34.0 ABG / Lab / Microbiology Data 06/23/24 05:55 06/23/24 05:55 Laboratory: Laboratory Results - last 24 hr 06/23/24 05:55: WBC 5.7, RBC 4.65, Hgb 14.2, Hct 41.2, MCV 88.6, MCH 30.5, MCHC 34.5, RDW Std Deviation 42.8, RDW Coeff of Ousmane 13.2, Plt Count 259, MPV 11.0, Immature Gran % (Auto) 0.200, Neut % (Auto) 59.8, Lymph % (Auto) 29.4, [place] % (Auto) 9.4, Eos % (Auto) 0.9, Baso % (Auto) 0.3, Absolute Neuts (auto) 3.4, Absolute Lymphs (auto) 1.69, Nucleated RBC % 0, Sodium 141, Potassium 3.6, C hloride 108 H, Carbon Dioxide 26.0, Anion Gap 7, BUN 8, Creatinine 0.56, Estim Creat Clear Calc 102.12, Est GFR (MDRD) Af Amer 140, Est GFR (MDRD) Non-Af 116, BUN/Creatinine Ratio 14.2, Glucose 97, Calcium 8.8 Microbiology: Microbiology 06/20/24 14:00 Mucosa - Nose SARS-CoV-2, Influenza & RSV (PCR) - Final Influenzae A D/C Instructions Discharge Diet: Low fat / Low cholesterol Discharge Activity: Return to Normal Activity Weight Bearing Status: Weight bearing as tolerated Call your doctor if you observe: Fever of 101 or Higher, Shortness of breath, Dizziness, Swelling in the ankles and Chest pain DC O2, CPAP, BIPAP Needs PSN CPAP & BiPAP: BiPAP & CPAP Settings per PSN Fraction of Inspired Oxygen ( 92 06/21/24 12:47 FIO2) Home O2 Discharge instructions: No Meaningful Use Info Meaningful Use Meaningful Use Diagnoses (Choose all that apply): None applicable Ischemic Stroke Statin Dosing Therapy Reference: STATIN DOSE THERAPY REFERENCE: * Patients > 75 years receive moderate or high dose statin therapy. * Patients 75 years or YOUNGER should receive HIGH intensity statin dose unless contraindicated. You will be required to document reason for non-treatment if statin daily dose does not meet guidelines. HIGH DOSE STATIN THERAPY DAILY Atorvastatin > than or = to 40 mg Rosuvastatin > than or = to 20 mg Amlodipine + Atorvastatin > than or = to 2.5/40 mg Ezetimibe + Simvastatin 10/80 mg Simvastatin 80mg Discharge Plan Admission Admit Date/Time: 06/20/24 16:44 Primary Reason for Your Visit: acute influenza Attending Provider: Anupama Aguilar Primary Care Provider: Klaudia Harris NP Consulting Providers: Brooke Martin; James Yanes Instructions Patient Instructions: ED Influenza (Adult) Discharge Orders/Prescriptions Prescriptions: New oseltamivir 75 mg Capsule 75 mg PO BID Qty: 4 0RF Continued venlafaxine 150 mg tablet extended release 24hr 150 mg PO DAILY atorvastatin 10 mg tablet 10 mg PO DAILY multivitamin [Daily Multi-Vitamin] Tablet 1 tab PO DAILY metoprolol succinate 50 mg tablet extended release 24 hr 100 mg PO BID furosemide 20 mg tablet 20 mg PO DAILY Referrals / Follow Up: Klaudia Harris NP, BICYCLE REPAIRMAN-C [Primary Care Provider] - Within 1 Week Disposition Disposition (needs filled in before D/C Order can be placed): Home, Self Care Charges/Coding Visit Charges Inpatient E&M: 67856 Disch Hosp >30min
--- NOTE | 2024-06-23 12:55 | PCM.DC ---
Discharge Instructions Diet Discharge Diet: Low fat / Low cholesterol DC O2, CPAP, BIPAP needs Home O2 Discharge instructions: No Dressing / Incision Discharge Activity: Return to Normal Activity Weight Bearing Status: Weight bearing as tolerated Dressing / Incision Call your doctor if you observe: Fever of 101 or Higher, Shortness of breath, Dizziness, Swelling in the ankles and Chest pain Follow Up Care Test Results: Test results from this visit will be discussed in further detail at your follow-up appointment, if applicable. Discharge Plan Admission Admit Date/Time: 06/20/24 16:44 Primary Reason for Your Visit: acute influenza Attending Provider: Anupama Aguilar Primary Care Provider: Klaudia Harris NP Consulting Providers: Brooke Martin; James Yanes Instructions Patient Instructions: ED Influenza (Adult) Discharge Orders/Prescriptions Prescriptions: New oseltamivir 75 mg Capsule 75 mg PO BID Qty: 4 0RF Continued venlafaxine 150 mg tablet extended release 24hr 150 mg PO DAILY atorvastatin 10 mg tablet 10 mg PO DAILY multivitamin [Daily Multi-Vitamin] Tablet 1 tab PO DAILY metoprolol succinate 50 mg tablet extended release 24 hr 100 mg PO BID furosemide 20 mg tablet 20 mg PO DAILY Referrals / Follow Up: Klaudia Harris NP, [employer] [facility] [Primary Care Provider] - Within 1 Week Disposition Disposition (needs filled in before D/C Order can be placed): Home, Self Care
[2024-06-23] MEDS: Ipratropium/Albuterol Sulfate 3 ML AMPUL.NEB INHALATION (13:08)
== END 2024-06-23 16:09 | disposition home or self-care (01) | DRG 194 ==
LOC: ED 16:39 → MS3 17:02
PROVIDERS: Family Medicine; Physician Assistant; Admitting Provider Internal Medicine; Emergency Provider Emergency Medicine; PCP Nurse Practitioner Family; Visit Provider Student in an Organized Health Care Education/Training Program
DX: J10.00 Influenza due to other identified influenza virus with unspecified type of pneumonia (principal); I42.1 Obstructive hypertrophic cardiomyopathy; F32.A Depression, unspecified; I10 Essential (primary) hypertension; E78.5 Hyperlipidemia, unspecified; E87.6 Hypokalemia; F41.9 Anxiety disorder, unspecified; R09.02 Hypoxemia; Z95.810 Presence of automatic (implantable) cardiac defibrillator; Z79.899 Other long term (current) drug therapy
CPT/HCPCS: 36415; 71046; 80048; 82375; 84484; 85025; 87631; 93005; 94640; 94668; 99285; A4216